=== PATIENT | male | born 1965 | race Caucasian/White ===

== ENCOUNTER → 2018-03-07 | Outpatient (CLI) | payer OTHER ==
[~2018-03-07] MED LIST: ALBU8.5H8 IN; CIPR500T PO; LANS30CA PO; METR500T8 PO; SERT50TA8 PO
--- NOTE | 2018-03-08 09:46 | RAD ---
Abdomen, 2 views, 03/07/2018: HISTORY: Stomach pain and cramping The abdominal gas pattern is unremarkable. No free air is present in the abdomen. There is no evidence of organomegaly. Surgical clips are projected over the pelvis. Lower pelvic calcifications are probably phleboliths. IMPRESSION: No acute abdominal abnormality is detected. Electronically signed by: Subhash López MD (03/08/2018 9:43 AM) [facility]
== END | disposition home or self-care (01) ==
LOC: PMG 10:37
PROVIDERS: ATTEND Physician Assistant
DX: R10.33 Periumbilical pain (principal); K21.9 Gastro-esophageal reflux disease without esophagitis; Z87.442 Personal history of urinary calculi
CPT/HCPCS: 74021

== ENCOUNTER 2018-03-08 08:24 | Inpatient (IN) | payer OTHER ==
[~2018-03-08] VITALS: Ht 185.4 cm; Wt 110.7 kg
[2018-03-08] MEDS ORDERED: IOHEXOL 240 MG/ML 50ML VIAL. ONE (08:53)
[2018-03-08] MEDS ORDERED: KETOROLAC 30 MG/ML VIAL. IV ONE (09:00)
[2018-03-08] MEDS ORDERED: 0.9 % SODIUM CHLORIDE 10 ML DISP.SYRIN. IV PRN (09:00)
[2018-03-08] MEDS ORDERED: ONDANSETRON PF 4 MG/2 ML VIAL. IV ONE (09:00)
[2018-03-08] MEDS ORDERED: IV NORMAL SALINE 1,000ML 1,000 ML IV SCH (09:00)
[2018-03-08] MEDS ORDERED: IOHEXOL 300 MG/ML 75 ML VIAL. IV ONE (09:15)
[2018-03-08 09:36] LABS: BASO % 0 % (0-3); EOS # 0.1 x10^3/uL (0.0-0.7); EOS % 1 % (0-3); HEMATOCRIT 48.6 % (39.0-53.0); HEMOGLOBIN 16.9 g/dL (13.0-17.5); LYMPH # 1.2 x10^3/uL (1.0-4.8); LYMPH % 15 % (24-48); MEAN CORPUSCULAR HEMOGLOBIN 32 pg (25-35); MEAN CORPUSCULAR HGB CONC 35 g/dL (31-37); MEAN CORPUSCULAR VOLUME 91 fL (79-100); MONO # 0.6 x10^3/uL (0.0-1.1); MONO % 7 % (0-9); NEUT % 76 % (31-73); PLATELET COUNT 367 x10^3/uL (140-400); RED BLOOD COUNT 5.37 x10^6/uL (4.30-5.70); RED CELL DISTRIBUTION WIDTH 12.8 % (11.5-14.5); WHITE BLOOD COUNT 7.9 x10^3/uL (4.0-11.0)
[2018-03-08 09:37] LABS: ALBUMIN 3.9 g/dL (3.4-5.0); ALBUMIN/GLOBULIN RATIO 0.8 (1.0-1.7); CALCIUM 9.2 mg/dL (8.5-10.1); CREATININE 1.1 mg/dL (0.7-1.3); GFR 70.3; POTASSIUM 4.2 mmol/L (3.5-5.1); TOTAL BILIRUBIN 0.9 mg/dL (0.2-1.0); TOTAL PROTEIN 8.8 g/dL (6.4-8.2)
[2018-03-08] MEDS ORDERED: MORPHINE SULFATE 4 MG/ML DISP.SYRIN. IV ONE ×2 (10:00→13:00)
--- NOTE | 2018-03-08 10:45 | RAD ---
CT abdomen pelvis with contrast 03/08/2018 Clinical indication: Abdominal pain, diarrhea, hernia repair. COMPARISON: None. TECHNIQUE: Multiple CT images of the abdomen and pelvis were obtained following the intravenous ministration of 75 mL Omnipaque 300. *One or more of the following individualized dose reduction techniques were utilized for this examination: 1. Automated exposure control. 2. Adjustment of the mA and/or kV according to patient size. 3. Use of iterative reconstruction technique. FINDINGS: Heart size is normal. Visualized lung bases are clear. There is a 0.9 cm hepatic segment 2 hypodensity series 2/image 21. Gallbladder contracted. No bile duct dilatation. Spleen, adrenal glands, pancreas are unremarkable. There are few 0.2 cm left and a single 0.2 cm right nonobstructive nephrolithiasis. Abdominal aorta is normal in caliber. Major portal, splenic and visualized superior mesenteric veins are patent. Small and large bowel loops are normal in caliber without obstruction. Appendix is normal in appearance. Mild sigmoid diverticulosis with stranding and edema adjacent to a mid sigmoid diverticula series 3/image 39. No josiane pneumoperitoneum. No drainable pericolonic fluid collection. Postsurgical changes of a ventral hernia repair with mesh. No retroperitoneal or mesenteric lymphadenopathy. Urinary bladder, prostate and seminal vesicles are unremarkable. There are no destructive osseous lesions. IMPRESSION: 1. Acute sigmoid diverticulitis. No drainable pericolonic fluid collection. 2. Punctate bilateral nonobstructive nephrolithiasis. 3. Tiny, 0.9 cm, left hepatic hypodensity, indeterminate. Follow-up MRI in 6 months without with contrast is recommended. Electronically signed by: Arjun Floyd MD (03/08/2018 10:42 AM) [id number]
--- NOTE | 2018-03-08 11:08 | PHYS DOC ---
Past History Past Medical History: Anxiety, Constipation, GERD Past Surgical History: Other Alcohol Use: None Drug Use: None Adult General Chief Complaint Chief Complaint: CONSTIPATION HPI HPI 53-year-old male patient states lesion of the day. Patient complaining of constipation the last 2 days associated with abdominal cramping pain and nausea without symptoms, fever chills, shortness of breath. Patient states he took lactulose belonged to his without change of his condition and seen by his primary care physician yesterday with unremarkable labs and x-ray and treated with Amitiza but did not have any bowel movement. Patient states his pain increasing today at 8/10. Review of Systems Review of Systems Constitutional: Denies fever or chills [] Eyes: Denies change in visual acuity, redness, or eye pain [] HENT: Denies nasal congestion or sore throat [] Respiratory: Denies cough or shortness of breath [] Cardiovascular: No additional information not addressed in HPI [] GI: Reports abdominal pain, nausea, constipation, denies vomiting, bloody stools or diarrhea [] : Denies dysuria or hematuria [] Musculoskeletal: Denies back pain or joint pain [] Integument: Denies rash or skin lesions [] Neurologic: Denies headache, focal weakness or sensory changes [] Endocrine: Denies polyuria or polydipsia [] All other systems were reviewed and found to be within normal limits, except as documented in this note. Current Medications Current Medications Current Medications Medications (Trade) Dose Ordered Sig/Ze Start Time Stop Time Status Last Admin Dose Admin Iohexol (Omnipaque 240 Mg/ml) 50 ml STK-MED ONCE 03/08/18 08:53 03/08/18 08:54 DC Iohexol (Omnipaque 300 Mg/ml) 75 ml 1X ONCE 03/08/18 09:15 03/08/18 09:16 DC 03/08/18 10:08 75 ML Ketorolac Tromethamine (Toradol) 30 mg 1X ONCE 03/08/18 09:00 03/08/18 09:01 DC 03/08/18 09:22 30 MG Morphine Sulfate (Morphine 4mg Syringe) 4 mg 1X ONCE 03/08/18 10:00 03/08/18 10:17 DC 03/08/18 10:26 4 MG Ondansetron HCl (Zofran) 4 mg 1X ONCE 03/08/18 09:00 03/08/18 09:01 DC 03/08/18 09:22 4 MG Sodium Chloride (Normal Saline Flush) 10 ml QSHIFT PRN 03/08/18 09:00 Allergies Allergies Allergies Coded Allergies Type Severity Reaction Last Updated Verified No Known Drug Allergies 03/08/18 No Physical Exam Physical Exam Constitutional: Well developed, well nourished, moderate distress, non-toxic appearance. [] HENT: Normocephalic, atraumatic, oropharynx dry, no oral exudates, nose normal. [] Eyes: PERRLA, EOMI, conjunctiva normal, no discharge. [] Neck: Normal range of motion, no tenderness, supple, no stridor. [] Cardiovascular:Heart rate regular rhythm, no murmur [] Lungs & Thorax: Bilateral breath sounds clear to auscultation [] Abdomen: Bowel sounds increased, soft, guarding and tenderness in right lower and upper quadrant, no masses, no pulsatile masses, patient refused rectal exam and stated he did rectal exam by himself and there was no stool in his rectum. [] Skin: Warm, dry, no erythema, no rash. [] Back: No tenderness, no CVA tenderness. [] Extremities: No tenderness, no cyanosis, no clubbing, ROM intact, no edema. [] Neurologic: Alert and oriented X 3, normal motor function, normal sensory function, no focal deficits noted. [] Psychologic: Affect normal, judgement normal, mood normal. [] Current Patient Data Vital Signs Vital Signs Date Time Temp Pulse Resp B/P (MAP) Pulse Ox O2 Delivery O2 Flow Rate FiO2 03/08/18 08:24 98.0 95 16 98 Room Air Lab Results Laboratory Tests Test 03/08/18 09:07 White Blood Count 7.9 x10^3/uL (4.0-11.0) Red Blood Count 5.37 x10^6/uL (4.30-5.70) Hemoglobin 16.9 g/dL (13.0-17.5) Hematocrit 48.6 % (39.0-53.0) Mean Corpuscular Volume 91 fL (79-100) Mean Corpuscular Hemoglobin 32 pg (25-35) Mean Corpuscular Hemoglobin Concent 35 g/dL (31-37) Red Cell Distribution Width 12.8 % (11.5-14.5) Platelet Count 367 x10^3/uL (140-400) Neutrophils (%) (Auto) 76 % (31-73) H Lymphocytes (%) (Auto) 15 % (24-48) L Monocytes (%) (Auto) 7 % (0-9) Eosinophils (%) (Auto) 1 % (0-3) Basophils (%) (Auto) 0 % (0-3) Neutrophils # (Auto) 6.0 x10^3uL (1.8-7.7) Lymphocytes # (Auto) 1.2 x10^3/uL (1.0-4.8) Monocytes # (Auto) 0.6 x10^3/uL (0.0-1.1) Eosinophils # (Auto) 0.1 x10^3/uL (0.0-0.7) Basophils # (Auto) 0.0 x10^3/uL (0.0-0.2) Sodium Level 136 mmol/L (136-145) Potassium Level 4.2 mmol/L (3.5-5.1) Chloride Level 101 mmol/L (98-107) Carbon Dioxide Level 24 mmol/L (21-32) Anion Gap 11 (6-14) Blood Urea Nitrogen 18 mg/dL (8-26) Creatinine 1.1 mg/dL (0.7-1.3) Estimated GFR (Cockcroft-Gault) 70.3 BUN/Creatinine Ratio 16 (6-20) Glucose Level 117 mg/dL (70-99) H Calcium Level 9.2 mg/dL (8.5-10.1) Total Bilirubin 0.9 mg/dL (0.2-1.0) Aspartate Amino Transferase (AST) 12 U/L (15-37) L Alanine Aminotransferase (ALT) 38 U/L (16-63) Alkaline Phosphatase 76 U/L (46-116) Total Protein 8.8 g/dL (6.4-8.2) H Albumin 3.9 g/dL (3.4-5.0) Albumin/Globulin Ratio 0.8 (1.0-1.7) L Lipase 103 U/L (73-393) EKG EKG [] Radiology/Procedures Radiology/Procedures [] [address] [address] IMAGING REPORT Signed PATIENT: LISA WELDON ACCOUNT: [id number] : 1965 LOCATION: ER AGE: 53 SEX: M EXAM STATUS: REG ER ORD. PHYSICIAN: WENDY CARTER MD REASON: Abdominal pain PROCEDURE: CT ABD PELV W/ORAL&IV CONTRAST CT abdomen pelvis with contrast 03/08/2018 Clinical indication: Abdominal pain, diarrhea, hernia repair. COMPARISON: None. TECHNIQUE: Multiple CT images of the abdomen and pelvis were obtained following the intravenous ministration of 75 mL Omnipaque 300. *One or more of the following individualized dose reduction techniques were utilized for this examination: 1. Automated exposure control. 2. Adjustment of the mA and/or kV according to patient size. 3. Use of iterative reconstruction technique. FINDINGS: Heart size is normal. Visualized lung bases are clear. There is a 0.9 cm hepatic segment 2 hypodensity series 2/image 21. Gallbladder contracted. No bile duct dilatation. Spleen, adrenal glands, pancreas are unremarkable. There are few 0.2 cm left and a single 0.2 cm right nonobstructive nephrolithiasis. Abdominal aorta is normal in caliber. Major portal, splenic and visualized superior mesenteric veins are patent. Small and large bowel loops are normal in caliber without obstruction. Appendix is normal in appearance. Mild sigmoid diverticulosis with stranding and edema adjacent to a mid sigmoid diverticula series 3/image 39. No josiane pneumoperitoneum. No drainable pericolonic fluid collection. Postsurgical changes of a ventral hernia repair with mesh. No retroperitoneal or mesenteric lymphadenopathy. Urinary bladder, prostate and seminal vesicles are unremarkable. There are no destructive osseous lesions. IMPRESSION: 1. Acute sigmoid diverticulitis. No drainable pericolonic fluid collection. 2. Punctate bilateral nonobstructive nephrolithiasis. 3. Tiny, 0.9 cm, left hepatic hypodensity, indeterminate. Follow-up MRI in 6 months without with contrast is recommended. Electronically signed by: Minesh Floyd MD (03/08/2018 10:42 AM) [id number] DICTATED AND SIGNED BY: MINESH FLOYD MD DATE: 03/08/18 1036 CC: WENDY CARTER MD; TIM HUDSON ~ Course & Med Decision Making Course & Med Decision Making Pertinent Labs and Imaging studies reviewed. (See chart for details) Evaluation of patient in ER showed 53-year-old male patient with complaining of abdominal pain and nausea and constipation. Patient was in moderate distress in ER. CBC and CMP was unremarkable. CT abdomen and pelvis showed acute diverticulitis. Dr. Tyler informed at 1118 and agreed with admitting patient. Patient treated with Cipro and Flagyl in ER but later on he changed his mind and decided to go home and take outpatient treatment. Patient had several doses of pain medication because of moderate distress of pain and finally agreed to stay at Hospital at 1223. Dragon Disclaimer Dragon Disclaimer This electronic medical record was generated, in whole or in part, using a voice recognition dictation system. Departure Departure: Impression: Primary Impression: Acute diverticulitis Additional Impression: Abdominal pain Disposition: ADMITTED INPATIENT (At 1223) Admitting Physician: Mare Tyler Condition: IMPROVED Referrals: TIM HUDSON (PCP) Problem Qualifiers WENDY CARTER MD March 08, 2018 11:08
[2018-03-08] MEDS ORDERED: CIPROFLOXACIN 400MG PREMIX 200 ML IV ONE (11:15)
[2018-03-08] MEDS ORDERED: ONDANSETRON PF 4 MG/2 ML VIAL. IV PRN (12:30)
[2018-03-08] MEDS: IV NORMAL SALINE 1,000ML 1,000 ML IV SCH ×2 (12:43→20:31)
[2018-03-08 13:55] VITALS: BP 117/79
[2018-03-08] MEDS ORDERED: ALBU8.5H8 IN (14:33)
[2018-03-08] MEDS ORDERED: SERT50TA8 PO (14:33)
[2018-03-08] MEDS ORDERED: LANS30CA PO (14:33)
--- NOTE | 2018-03-08 18:12 | HP ---
ADMIT DATE: 03/08/2018 HISTORY OF PRESENT ILLNESS: The patient is a 53-year-old male patient has been complaining of abdominal pain for the last 4 days. He saw his primary care physician yesterday, was given laxatives as he was told he is constipated. Apparently, he spent the whole night in the bathroom, has about 15 bowel movements. He came back continued to complain of severe pain despite having numerous bowel movements. He was investigated in the Emergency Room, has had a CT scan of the abdomen and pelvis with contrast, which showed that he has acute sigmoid diverticulitis, no drainable pericolonic fluid collection, has punctate bilateral nonobstructive nephrolithiasis, has also a tiny left hepatic hypodensity indeterminate. Follow up an MRI in 6 months without contrast and recommended. He was admitted, was continued on IV Flagyl and ciprofloxacin as well as IV fluids and antiemetic and pain medication. PAST MEDICAL HISTORY: Significant for obstructive sleep apnea, bronchial asthma, gastroesophageal reflux disease and panic attack. PAST SURGICAL HISTORY: Significant for periumbilical hernia repair with mesh and colonoscopy and polypectomy. According to him, one of the polyps was premalignant. ALLERGIES: He has no known drug allergies. MEDICATIONS: He is currently on following medications: He is on albuterol sulfate, ProAir 2 puffs as needed, sertraline 50 mg daily and Prevacid 30 mg twice a day. FAMILY HISTORY: He is only child, has no brothers and sisters. His father at the age of 59 because of cancer and mother is still alive at the age of 74, survived with bone cancer. SOCIAL HISTORY: He is , has 1 daughter that is 16 years old. He does not smoke, drink alcohol or recreational drugs. 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 REVIEW OF SYSTEMS: Basically as per the history of present illness. PHYSICAL EXAMINATION: GENERAL: On arrival, he was somewhat pale. No jaundice, cyanosis, or thyromegaly. No jugular venous distension. No limb edema. VITAL SIGNS: His heart rate was 97, blood pressure was 124/92, temperature was 97, respiratory rate was 16, and oxygen saturation was 97%. HEAD, EYES, EARS, NOSE AND THROAT: Showed normocephalic, atraumatic. NECK: Supple. HEART: Showed normal first and second sounds. No gallop, rub or murmur. CHEST: Clear to auscultation. No crepitation or rhonchi. ABDOMEN: Distended, soft with tenderness mostly in the suprapubic area, left and right lower quadrant. There is no guarding or rigidity. No organomegaly. All hernial orifices intact. Bowel sounds normal. NEUROLOGIC: He is awake, alert, responding appropriately. All cranial nerves intact. EXTREMITIES: He moves extremities without difficulty, ambulates without assistance or assistive devices. LABORATORY DATA: His white cell count was 7900, hemoglobin 17, hematocrit 49, MCV 91, and platelet count 367,000. His serum sodium was 136, potassium 4.2, chloride 101, bicarbonate 24, anion gap of 11, BUN 18, creatinine 1.1, estimated GFR was 70 mL per minute. His glucose 117, calcium was 9.2. Total bilirubin, AST, ALT, alkaline phosphatase were normal. Total protein was 8.8, albumin was 3.9. Lipase was 103. CT scan of the abdomen and pelvis without contrast showed that the patient has acute sigmoid diverticulitis, but no drainable pericolonic fluid collection. ASSESSMENT AND PLAN: The patient will be continued on IV Flagyl, ciprofloxacin as well as morphine, and IV fluid. We will start him on clear liquid diet and advance as tolerated. MILA RAMIREZ MD DR: LEXUS/bobby JOB#: [id number] / [id number]
[2018-03-08 19:35] VITALS: BP 115/72
[2018-03-08] MEDS: TEMAZEPAM 15 MG CAPSULE PO PRN (20:31)
[2018-03-08] MEDS: LACTOBACILLUS RHAMNOSUS GG 1 CAPSULE. PO SCH (20:31)
[2018-03-08] MEDS: CIPROFLOXACIN 400MG PREMIX 200 ML IV SCH (20:31)
[2018-03-08 23:00] VITALS: BP 127/76
[2018-03-09] MEDS: IV NORMAL SALINE 1,000ML 1,000 ML IV SCH ×2 (03:32→12:08)
[2018-03-09 05:50] VITALS: BP 112/66
[2018-03-09 07:42] LABS: BASO % 0 % (0-3); EOS # 0.1 x10^3/uL (0.0-0.7); EOS % 2 % (0-3); HEMATOCRIT 39.5 % (39.0-53.0); HEMOGLOBIN 13.8 g/dL (13.0-17.5); LYMPH # 1.2 x10^3/uL (1.0-4.8); LYMPH % 20 % (24-48); MEAN CORPUSCULAR HEMOGLOBIN 32 pg (25-35); MEAN CORPUSCULAR HGB CONC 35 g/dL (31-37); MEAN CORPUSCULAR VOLUME 91 fL (79-100); MONO # 0.5 x10^3/uL (0.0-1.1); MONO % 9 % (0-9); NEUT # 4.1 x10^3uL (1.8-7.7); NEUT % 69 % (31-73); PLATELET COUNT 287 x10^3/uL (140-400); RED BLOOD COUNT 4.37 x10^6/uL (4.30-5.70); RED CELL DISTRIBUTION WIDTH 12.8 % (11.5-14.5); WHITE BLOOD COUNT 5.9 x10^3/uL (4.0-11.0)
[2018-03-09 07:56] LABS: ALBUMIN 2.9 g/dL (3.4-5.0); ALBUMIN/GLOBULIN RATIO 0.8 (1.0-1.7); CALCIUM 7.8 mg/dL (8.5-10.1); CREATININE 0.9 mg/dL (0.7-1.3); GFR 88.6; POTASSIUM 4.3 mmol/L (3.5-5.1); TOTAL BILIRUBIN 0.8 mg/dL (0.2-1.0); TOTAL PROTEIN 6.4 g/dL (6.4-8.2)
[2018-03-09] MEDS: CIPROFLOXACIN 400MG PREMIX 200 ML IV SCH ×2 (08:46→21:27)
[2018-03-09] MEDS: LACTOBACILLUS RHAMNOSUS GG 1 CAPSULE. PO SCH ×2 (08:46→21:27)
[2018-03-09 11:04] VITALS: BP 127/82
[2018-03-09 15:27] VITALS: BP 112/77
[2018-03-09] MEDS: PANTOPRAZOLE 40 MG TABLET. PO SCH (19:00)
[2018-03-09 20:01] VITALS: BP 137/87
[2018-03-09] MEDS: TEMAZEPAM 15 MG CAPSULE PO PRN (21:32)
[2018-03-10 07:55] LABS: CREATININE 0.8 mg/dL (0.7-1.3); GFR 101.5
[2018-03-10] MEDS: LACTOBACILLUS RHAMNOSUS GG 1 CAPSULE. PO SCH (09:20)
[2018-03-10] MEDS: PANTOPRAZOLE 40 MG TABLET. PO SCH (09:20)
[2018-03-10] MEDS: CIPROFLOXACIN 400MG PREMIX 200 ML IV SCH (09:20)
--- NOTE | 2018-03-10 10:08 | PN ---
DATE: 03/08/2018 SUBJECTIVE: The patient is resting, slightly almost flat in bed, in no apparent distress. He continued to complain of pain mostly in the suprapubic area and right lower quadrant. Denied any nausea or vomiting. Denied any further episode of diarrhea. He would like to advance his diet. PHYSICAL EXAMINATION: GENERAL: When I examined him, he looked well and was clearly in no apparent respiratory distress, pale, but no jaundice, cyanosis, or thyromegaly. No jugular distention edema. No limb edema. VITAL SIGNS: His heart rate was 68, blood pressure 127/82, temperature was 97.7, respiratory rate was 18 and oxygen saturation was 96%. HEAD, EYES, EARS, NOSE AND THROAT: Showed normocephalic, atraumatic. NECK: Supple. HEART: Showed normal first and second heart sounds. No gallop, rub or murmur. CHEST: Clear to auscultation. No crepitation or rhonchi. ABDOMEN: Distended, soft, nontender. No guarding or rigidity. No organomegaly. All hernial orifice intact. Bowel sounds normal. NEUROLOGIC: He has mild tenderness mostly in the suprapubic area and in the left and right lower quadrant. Neurologically; he is awake, alert, responding appropriately. Cranial nerves intact. He moves extremities without difficulty, ambulates without assistance or assistive devices. LABORATORY DATA: This morning showed a serum sodium 139, potassium 4.3, chloride 106, bicarbonate 28, anion gap of 5, BUN 14, creatinine 0.9, estimated GFR was 88 mL per minute. His glucose 94, calcium was 7.8. Total bilirubin, AST, ALT, alkaline phosphatase were normal. Total protein was 6.4, albumin 2.9. His white cell count was 5900, hemoglobin 14, hematocrit 40, MCV 91, and platelet count . ASSESSMENT: Acute diverticulitis. PLAN: To continue IV Flagyl and IV ciprofloxacin. Continue with IV fluid and pain medication. I will advance his diet to soft diet and monitor his lab work again tomorrow and decide on further management accordingly. MILA RAMIREZ MD DR: LEXUS/bobby JOB#: [id number] / [id number]
[2018-03-10] MEDS ORDERED: CIPR500T PO (11:28)
[2018-03-10] MEDS ORDERED: METR500T8 PO (11:28)
--- NOTE | 2018-03-10 21:42 | DS ---
DATE OF DISCHARGE: 03/10/2018 HOSPITAL COURSE: The patient is resting, slightly propped up in bed, in no apparent distress. He has had no further episodes of abdominal pain, no nausea, no vomiting, tolerating his diet, has had a bowel movement and as he is hemodynamically stable and afebrile, a decision was made to discharge him home to continue treatment of his acute diverticulitis with oral Flagyl and ciprofloxacin. PHYSICAL EXAMINATION: GENERAL: When I saw him this morning, he looked well and was clearly in no apparent respiratory distress, pale, no jaundice, cyanosis, or thyromegaly. No jugular venous distension. No limb edema. VITAL SIGNS: His heart rate was 84, blood pressure 137/87, temperature was 97.9, respiratory rate was 16, and oxygen saturation was 95% on room air. HEAD, EYES, EARS, NOSE AND THROAT: Normocephalic, atraumatic. NECK: Supple. HEART: Showed normal first and second heart sounds. No gallop, rub or murmur. CHEST: Clear to auscultation, ____. ABDOMEN: No guarding or rigidity. No organomegaly. Hernial orifice intact. Bowel sounds normal. NEUROLOGIC: He was awake, alert, responding appropriately. Cranial nerves intact. EXTREMITIES: He moves extremities without difficulty, ambulates without assistance or assistive devices. LABORATORY DATA: His serum sodium is 139, potassium 4, chloride 106, bicarbonate 26, anion gap of 7, BUN 10, creatinine 0.8, estimated GFR was 101 mL per minute, his glucose was 98, calcium was 8. His white cell count was 5900, hemoglobin 13.8, hematocrit 39, MCV 91, and platelet count of 287,000. DISCHARGE MEDICATIONS: The patient was discharged home to continue on metronidazole 500 mg 3 times a day, ciprofloxacin 500 mg twice a day for 7 days. Should continue also his albuterol sulfate 2 puffs every 4 hours as needed, lansoprazole 30 mg capsules twice a day and sertraline 50 mg once a day. FINAL DISCHARGE DIAGNOSES: 1. Acute diverticulitis. 2. Other issues, obstructive sleep apnea. 3. Bronchial asthma. 4. Gastroesophageal reflux disease. 5. Panic attack. MILA RAMIREZ MD DR: LEXUS/bobby JOB#: [id number] / [id number]
== END 2018-03-10 12:25 | disposition home or self-care (01) | DRG 392 ==
LOC: ER 08:24 → 1 SOUTH 13:49
PROVIDERS: ADMIT Internal Medicine; ATTEND Internal Medicine
DX: K57.32 Diverticulitis of large intestine without perforation or abscess without bleeding (principal); F41.0 Panic disorder [episodic paroxysmal anxiety]; G47.33 Obstructive sleep apnea (adult) (pediatric); J45.909 Unspecified asthma, uncomplicated; K21.9 Gastro-esophageal reflux disease without esophagitis; F41.9 Anxiety disorder, unspecified; K59.00 Constipation, unspecified; N20.0 Calculus of kidney; Z80.8 Family history of malignant neoplasm of other organs or systems
CPT/HCPCS: 36415; 74177; 80048; 80053; 83690; 85025; 96361; 96365; 96368; 96375; 96376; J0744; J1885; J2270; J2405; J3010; J3490; Q9967; 99285-25; J7030

== ENCOUNTER → 2021-05-20 | Outpatient (CLI) | payer OTHER ==
[~2021-05-20] MED LIST changes: +ALBU2.5V8 IN; -ALBU8.5H8 IN; -CIPR500T PO; +CIPR500T2 PO; +METR-34 PO; -METR500T8 PO; +SERT-268 PO; -SERT50TA8 PO
--- NOTE | 2021-05-20 14:11 | RAD ---
EXAMINATION: US BREAST BILAT, MG DIAGNOSTIC BILAT CLINICAL HISTORY: Painful lump behind left nipple TECHNIQUE: Digital craniocaudal and mediolateral oblique views of the bilateral breasts obtained as w ell as targeted retroareolar bilateral breast ultrasound. COMPARISON: None BREAST COMPOSITION: The breasts are almost entirely fatty. FINDINGS: No evidence of suspicious mass, calcifications, or areas of architectural distortion. Left retroareol ar mammographic triangular-shaped density corresponding to a triangular-shaped hypoechoic focus sonog raphically, compatible with gynecomastia. IMPRESSION: Asymmetric left retroareolar density compatible with gynecomastia, recommend clinical management. BI-RADS ASSESSMENT: Category 2: Benign RECOMMENDATION: Clinical management of painful palpable abnormality. PQRS compliance statement - Patient information was entered into a reminder system with a target due date for the next mammogram. "Our facility is accredited by the [employer] Mammography [employer]." Electronically signed by: Donnie Rincon DO (05/20/2021 2:09 PM) [id number]
== END ==
LOC: MAMMO 12:44
PROVIDERS: ATTEND Physician Assistant
DX: N63.42 Unspecified lump in left breast, subareolar (principal)
CPT/HCPCS: 77066; 76641-50